=== PATIENT | male | born 1945 | race Caucasian/White ===

== ENCOUNTER 2019-03-12 10:08 | Emergency (ER) | payer OTHER ==
[~2019-03-12] VITALS: Ht 177.8 cm; Wt 68.2 kg
[2019-03-12] MEDS ORDERED: POTA1TAB23 (10:17)
[2019-03-12] MEDS ORDERED: ECOT81TA5 PO (10:17)
[2019-03-12] MEDS ORDERED: HYDR25TAB (10:17)
[2019-03-12] MEDS ORDERED: AMLO5CAP44 (10:17)
[2019-03-12 11:00] LABS: BASO % 0.3 % (0.0-1.0); HEMATOCRIT 36.8 % (42.0-52.0); LYMPH # 0.5 10^3/uL (1.5-4.5); LYMPH % 6.6 % (24.0-44.0); MEAN CORPUSCULAR HEMOGLOBIN 30.3 pg (27.0-33.0); MEAN CORPUSCULAR HGB CONC 35.3 g/dl (32.0-36.5); MEAN CORPUSCULAR VOLUME 85.8 fl (80.0-96.0); MONO # 0.5 10^3/uL (0.0-0.8); MONO % 6.8 % (0.0-5.0); NEUTROPHILS % 85.3 % (36.0-66.0); PLATELET COUNT, AUTOMATED 336 10^3/uL (150-450); RED BLOOD COUNT 4.29 10^6/uL (4.30-6.10); WHITE BLOOD COUNT 7.1 10^3/uL (4.0-10.0)
[2019-03-12 11:32] LABS: ALBUMIN 2.4 GM/DL (3.2-5.2); ALT/SGPT 86 U/L (12-78); BILIRUBIN,DIRECT 0.2 MG/DL (0.0-0.2); BILIRUBIN,TOTAL 0.3 MG/DL (0.2-1.0); BLOOD UREA NITROGEN 7 MG/DL (7-18); CALCIUM LEVEL 7.9 MG/DL (8.8-10.2); CARBON DIOXIDE LEVEL 31 MEQ/L (21-32); CHLORIDE LEVEL 93 MEQ/L (98-107); CK-MB VALUE MASS 3.1 NG/ML (<3.6); CPK CREATINE PHOSPHOKINASE 130 U/L (39-308); CREATININE FOR GFR 0.62 MG/DL (0.70-1.30); GLOMERULAR FILTRATION RATE > 60.0 (>42); GLUCOSE, FASTING 114 MG/DL (70-100); MB/CK RELATIVE INDEX 2.38 (< OR =4); POTASSIUM SERUM 3.6 MEQ/L (3.5-5.1); SODIUM LEVEL 130 MEQ/L (136-145); TOTAL PROTEIN 6.1 GM/DL (6.4-8.2); TROPONIN I 0.02 NG/ML (< 0.10)
[2019-03-12 11:56] LABS: ERYTHROCYTE SEDIMENTATION RATE 77 mm/hr (0-20)
--- NOTE | 2019-03-12 12:49 | REPVR ---
EXAM: MR Angiogram Head Without Contrast, Arteries EXAM DATE/TIME: 03/12/2019 11:28 AM CLINICAL HISTORY: 73 years old, male; Patient HX: P/t from er, headaches for a couple of weeks; Additional info: Headache/facial droop left TECHNIQUE: Imaging protocol: MR angiogram head without contrast. Exam focused on the arteries. COMPARISON: CT Head without contrast 03/12/2019 10:35 AM FINDINGS: Right internal carotid artery: Unremarkable. Intracranial segment is patent with no significant stenosis. No aneurysm. Right anterior cerebral artery: Unremarkable. No occlusion or significant stenosis. No aneurysm. Right middle cerebral artery: Unremarkable. No occlusion or significant stenosis. No aneurysm. Right posterior cerebral artery: There is origin of the right posterior cerebral artery. Right vertebral artery: Unremarkable. No occlusion or significant stenosis. No aneurysm. Left internal carotid artery: Unremarkable. Intracranial segment is patent with no significant stenosis. No aneurysm. Left anterior cerebral artery: Unremarkable. No occlusion or significant stenosis. No aneurysm. Left middle cerebral artery: Unremarkable. No occlusion or significant stenosis. No aneurysm. Left posterior cerebral artery: There is origin of the left posterior cerebral artery. There is a small P1 communication to the basilar. Left vertebral artery: There is a small left vertebral artery which supplies only the PICA territory. Basilar artery: See Left Posterior Cerebral Artery Finding. Other vasculature: There is dominant supply of the anterior cerebral arteries from the left A1. IMPRESSION: 1. There is origin of the right posterior cerebral artery. 2. There is origin of the left posterior cerebral artery. There is a small P1 communication to the basilar. 3. There is a small left vertebral artery which supplies only the PICA territory. 4. There is dominant supply of the anterior cerebral arteries from the left A1. Electronically signed by: Oj Martinez On 03/12/2019 12:48:31 PM
--- NOTE | 2019-03-12 12:54 | REPVR ---
EXAM: MR Head Without Contrast EXAM DATE/TIME: 03/12/2019 11:28 AM CLINICAL HISTORY: 73 years old, male; Patient HX: P/t from er, headaches for a couple of weeks; Additional info: Headache/facial droop left TECHNIQUE: Imaging protocol: MR of the head without contrast. COMPARISON: CT Head without contrast 03/12/2019 10:35 AM FINDINGS: Brain: There is moderate atrophy and chronic white matter microangiopathic changes. There is no abnormal diffusion weighted signal intensity to suggest an acute ischemic event. No acute intracranial process is identified. Ventricles: There is compensatory ventricular dilation. Bones/joints: Unremarkable. Soft tissues: Normal. Sinuses: Normal as visualized. No acute sinusitis. Mastoid air cells: Normal as visualized. No mastoid effusion. Orbits: Unremarkable. Other vasculature: Normal vascular flow voids are present. See MRA for variations of vascular anatomy. Other findings: There is no abnormal suceptibility to suggest hemorrhage. IMPRESSION: No acute intracranial process is identified. Electronically signed by: Oj Martinez On 03/12/2019 12:53:59 PM
[2019-03-12 14:15] VITALS: BP 128/78
--- NOTE | 2019-03-13 20:00 | ECGEPIP ---
[facility] - ED Test Date: 2019-03-12 Pat Name: DIA FAYE Department: Room: - Gender: Male [employer]: : 1945 Requested By: Yesenia Evans Order Number: [id number] Reading MD: Amadeo Angelo Measurements Intervals [place] Rate: 60 P: 61 FL: 186 QRS: 22 QRSD: 101 T: 25 QT: 385 QTc: 388 Interpretive Statements SINUS RHYTHM NO PRIORS FOR COMPARISON Electronically Signed on 03-13-2019 20:00:37 EDT by Amadeo Angelo
--- NOTE | 2019-03-14 08:12 | REP ---
CT of the brain without IV contrast: There are no comparisons. There is no hemorrhage. There is no edema, mass effect or midline shift. There is mild diffuse volume loss. The cortical stripe is unremarkable. The visualized paranasal sinuses and mastoid air cells are clear. Impression: There is no hemorrhage, acute infarct or mass. There is mild diffuse volume loss. Otherwise, negative CT study of the brain. Electronically Signed by Alpesh Bonds MD 03/12/2019 12:53 P
[2019-03-15 00:06] LABS: Lyme Disease IgG/IgM Antibodie <0.91 ISR (0.00-0.90); Lyme Disease IgM Ab Quantitati <0.80 index (0.00-0.79)
== END 2019-03-12 14:16 | disposition home or self-care (01) ==
LOC: M ED 10:08
DX: R51 Headache (principal); I10 Essential (primary) hypertension; E78.5 Hyperlipidemia, unspecified; Z79.899 Other long term (current) drug therapy; Z79.82 Long term (current) use of aspirin; Z87.891 Personal history of nicotine dependence

== ENCOUNTER → 2019-03-15 | Outpatient (REF) | payer OTHER ==
[~2019-03-15] MED LIST: AMLO5CAP44; ECOT81TA5 PO; HYDR25TAB; POTA1TAB23
== END ==
LOC: M LAB REF 12:54
PROVIDERS: ATTEND Nurse Practitioner Adult Health
DX: R51 Headache (principal); R70.0 Elevated erythrocyte sedimentation rate

== ENCOUNTER → 2019-06-09 | Outpatient (REF) | payer OTHER | LOC: M LAB REF 16:40 | PROVIDERS: ATTEND Internal Medicine | DX: R51 Headache (principal); R70.0 Elevated erythrocyte sedimentation rate ==

== ENCOUNTER → 2022-06-04 | Outpatient (CLI) | payer MEDICARE ==
[~2022-06-04] MED LIST changes: +HYDR-3490; -HYDR25TAB
== END ==
LOC: M RAD 11:23
PROVIDERS: ATTEND Internal Medicine
DX: G45.9 Transient cerebral ischemic attack, unspecified (principal)

== ENCOUNTER → 2022-11-02 | Outpatient (REF) | payer OTHER | LOC: M SFHCCLAY 08:20 | PROVIDERS: ATTEND Physician Assistant | DX: R97.20 Elevated prostate specific antigen [PSA] (principal) ==

== ENCOUNTER → 2024-09-06 | Outpatient (REF) | payer OTHER | LOC: M LAB REF 13:04 | PROVIDERS: ATTEND Internal Medicine | DX: C61 Malignant neoplasm of prostate (principal) ==